=== PATIENT | male | born 1965 | race African-American/Black ===

== ENCOUNTER 2018-08-16 09:04 | Emergency (ER) | payer BC, MEDICAID ==
--- NOTE | 2018-08-16 09:25 | Emergency Department Record ---
History of Present Illness - General Chief Complaint: Dizziness Stated Complaint: LIGHTHEADED,BLEEDING Time Seen by Provider: 08/16/18 09:10 Source: Patient Mode of Arrival: Ambulatory Limitations: No limitations - History of Present Illness Initial Comments: pt has had vomiting w blood streaking and diarrhea w blood in it. he is dizzy and has pain in his abdomen. he also has cramps in various parts of his body but he states that has been occuring for years MD Complaint: Dizziness Onset/Timin -: Days(s) Description: Lightheadedness, Nausea History of Same: Yes History of Trauma: Yes Improves With: Nothing Worsens With: Nothing Associated Symptoms: Weakness - Haigler Coma Scale Eye Response: (4) Open spontaneously Motor Response: (6) Obeys commands Verbal Response: (5) Oriented Haigler Total: 15 - Symptoms of Stroke Symptoms of stroke: Dizziness - Related Data Home Medications Medication Instructions Recorded Confirmed Last Taken Polyvinyl Alcohol [Artificial 15 ml OP DAILY 08/16/18 08/16/18 Unknown Tears] Timolol/Dorzolamide/Latanop/Pf 5 ml OP DAILY 08/16/18 08/16/18 Unknown [Paul 0.5%-Dorz 2%-Latan 0.005%] Allergies Allergy/AdvReac Type Severity Reaction Status Date / Time Penicillins Allergy ANAPHYLAXIS Verified 08/16/18 09:09 Travel Screening - Travel/Exposure Within Last 30 Days Have you traveled within the last 30 days?: No Review of Systems Reviewed: No additional complaints except as noted below Constitutional: Reports: As per HPI. Denies: Chills, Fever, Malaise, Night sweats, Weakness, Weight change Eyes: Reports: As per HPI. Denies: Eye discharge, Eye pain, Photophobia, Vision change ENT: Reports: As per HPI. Denies: Congestion, Dental pain, Ear pain, Epistaxis, Hearing loss, Throat pain Respiratory: Reports: As per HPI. Denies: Cough, Dyspnea, Hemoptysis, Stridor, Wheezes Cardiovascular: Reports: As per HPI. Denies: Arrhythmia, Chest pain, Dyspnea on exertion, Edema, Murmurs, Orthopnea, Palpitations, Paroxysmal nocturnal dyspnea, Rheumatic Fever, Syncope Endocrine: Reports: As per HPI. Denies: Fatigue, Heat or cold intolerance, Polydipsia, Polyuria Gastrointestinal: Reports: As per HPI, Abdominal pain, Diarrhea, Nausea, Vomiting. Denies: Constipation, Hematemesis, Hematochezia, Melena Genitourinary: Reports: As per HPI. Denies: Dysuria, Frequency, Hematuria, Incontinence, Retention, Testicular pain, Testicular mass, Urgency Musculoskeletal: Reports: As per HPI. Denies: Arthralgia, Back pain, Gout, Joint swelling, Myalgia, Neck pain Skin: Reports: As per HPI. Denies: Bruising, Change in color, Change in hair/nails, Lesions, Pruritus, Rash Neurological: Reports: As per HPI. Denies: Abnormal gait, Confusion, Headache, Numbness, Paresthesias, Seizure, Tingling, Tremors, Vertigo, Weakness Psychiatric: Reports: As per HPI. Denies: Anxiety, Auditory hallucinations, Depression, Homicidal thoughts, Suicidal thoughts, Visual hallucinations Hematological/Lymphatic: Reports: As per HPI. Denies: Anemia, Blood Clots, Easy bleeding, Easy bruising, Swollen glands Past Medical History - SOCIAL HISTORY Smoking Status: Never smoker Alcohol Use: None Drug Use: None - RESPIRATORY Hx Respiratory Disorders: No - CARDIOVASCULAR Hx Cardio Disorders: No - NEURO Hx Neuro Disorders: No - GI Hx GI Disorders: Yes Hx Ulcer: Yes (peptic) - Hx Genitourinary Disorders: No - ENDOCRINE Hx Endocrine Disorders: No - MUSCULOSKELETAL Hx Musculoskeletal Disorders: No - PSYCH Hx Psych Problems: No - HEMATOLOGY/ONCOLOGY Hx Hematology/Oncology Disorders: No Family Medical History Any Significant Family History?: No Course Vital Signs 08/16/18 09:05 Temperature 98.0 F Pulse Rate 78 Respiratory 20 Rate Blood Pressure 118/73 Pulse Ox 99 - Reevaluation(s) Reevaluation #1: 08/16/18 10:29 pt refuses to have a rectal. pt wants to be transfered to [facility] Medical Decision Making - Lab Data Result diagrams: 08/16/18 09:20 08/16/18 09:20 Disposition Disposition: Transfer Clinical Impression: Acute anemia Disposition: Acute Care Hospital Transfer Transfer To: [facility] Reason For Transfer: pts request and needs specialists Accepting Physician: dr rehman Time Discussed w/Accepting Physician: 10:43 Forms: Patient Portal Access Quality - Quality Measures Quality Measures: N/A - Blood Pressure Screening Does Patient Have Any of the Following: No Blood Pressure Classification: Normal BP Reading Systolic Measurement: 118 Diastolic Measurement: 73 Screening for High Blood Pressure: < Normal BP, F/U Not Required > [G2038]
[2018-08-16] MEDS ORDERED: ONDANSETRON HCL IV 4 MG/2 ML VIAL IV ONE (09:33)
[2018-08-16] MEDS ORDERED: 0.9 % SODIUM CHLORIDE 1,000 ML BAG IV ONE (09:33)
[2018-08-16 09:46] LABS: ABSOLUTE NEUTROPHIL COUNT 3.12; HEMATOCRIT 18.2 % (42.0-52.0); MEAN CELL VOLUME 71.4 fl (81-97); MEAN CORPUSCULAR HEMOGLOBIN 19.2 pg (27-33); MEAN CORPUSCULAR HGB CONC 26.9 g/dl (32-36); PLATELET COUNT 435 K/uL (130-400); RED BLOOD COUNT 2.55 M/uL (4.40-5.70); RED CELL DISTRIBUTION WIDTH 17.9 % (11.5-14.5); WHITE BLOOD COUNT W/O DIFF 4.5 K/uL (4.2-12.2)
[2018-08-16 09:56] LABS: BLOOD UREA NITROGEN 8 mg/dL (6-20); CREATININE 0.7 mg/dL (0.7-1.2); EST GLOMERULAR FILTRATION RATE > 60 mL/min
[2018-08-16 09:57] LABS: LIPASE 22 U/L (13-60)
[2018-08-16 09:59] LABS: GLUCOSE,RANDOM 121 mg/dL (74-109)
[2018-08-16 10:00] LABS: ANISOCYTOSIS 2+; HYPOCHROMIA 3+; PLATELET ESTIMATE NORMAL (NORMAL); POIKILOCYTOSIS 2+
[2018-08-16 10:24] LABS: TOTAL PROTEIN 6.9 g/dL (6.6-8.7)
[2018-08-16 10:29] LABS: ALKALINE PHOSPHATASE 63 U/L (40-129); ALT/SGPT 12 U/L (<41); AST/SGOT 23 U/L (10.0-50.0)
[2018-08-16 10:30] LABS: BILIRUBIN,DIRECT < 0.2 mg/dL (0-0.3)
[2018-08-16 10:37] LABS: ABO GROUP O; ANTIBODY SCREEN NEGATIVE (NEGATIVE); RH TYPE POSITIVE
[2018-08-16] MEDS ORDERED: HYDROMORPHONE HCL 2 MG/ML VIAL IVP ONE (11:53)
--- NOTE | 2018-08-16 21:00 | CT SCAN REPORT ---
EXAM: CT SCAN ABDOMEN/PELVIS WO CONTRAST HISTORY: LEFT ABDOMINAL PAIN. BLOODY DIARRHEA. HEMATEMESIS. 30 LB WEIGHT LOSS IN ONE YEAR. TECHNIQUE: Helical CT examination of the abdomen and pelvis is performed without oral or intravenous contrast administration. Lack of oral and IV contrast utilization limits evaluation of the bowel and solid viscera, respectively. A paucity of intraabdominal and retroperitoneal fat also limits evaluation. COMPARISON: None. FINDINGS: Minor linear scarring vs. atelectasis in each lung base. There are multiple small calcified nodules scattered within the lung bases consistent with healed granulomatous disease. No pleural or pericardial effusion. The heart is not enlarged. To the extent visualized, no focal abnormality is demonstrated within the liver, spleen, pancreas, adrenal glands, nor kidneys. The gallbladder is unremarkable. No definite biliary ductal dilatation. No definite intraabdominal nor retroperitoneal lymphadenopathy, though evaluation is limited by a lack of intraabdominal and retroperitoneal fat. Minor atherosclerotic calcification is demonstrated within the distal abdominal aorta and right common iliac artery. No aneurysmal dilatation. No definite pelvic mass, lymphadenopathy, or free pelvic fluid. No intrinsic urinary bladder abnormality. No gross bowel dilatation nor bowel wall thickening. The appendix is not visualized with confidence, though no inflammatory changes are noted in its expected location. Mild degenerative endplate changes are scattered throughout the visualized spine. There is bilateral spondylolysis of L5 associated with grade 1 anterolisthesis of L5 on S1. There are several small hypodensities scattered within the iliac bones with the largest measuring up to 11 mm in maximum diameter. These may just relate to areas of focal marrow fat or hemangiomata. Lytic neoplastic lesions, though much less likely, cannot be entirely excluded. Comparison to prior examinations, if any exist, is recommended. If none exist, these could be further evaluated with either MRI examination or nuclear medicine total-body bone scan. IMPRESSION: 1. THE EXAMINATION IS MODERATELY LIMITED BY LACK OF ORAL AND IV CONTRAST UTILIZATION AND BY A PAUCITY OF INTRAABDOMINAL AND RETROPERITONEAL FAT. 2. NO CT EVIDENCE OF AN ACUTE INTRAABDOMINAL NOR INTRAPELVIC PROCESS. NO SUSPICIOUS MASS NOR ADENOPATHY. 3. MULTIPLE SMALL CALCIFIED GRANULOMATA WITHIN THE LUNG BASES. 4. BILATERAL SPONDYLOLYSIS OF L5 ASSOCIATED WITH GRADE 1 ANTEROLISTHESIS OF L5 ON S1. SEVERAL SMALL AREAS OF HYPODENSITY WITHIN THE ILIAC BONES, DISCUSSED ABOVE. JOB NUMBER: [id number] [facility]
== END 2018-08-16 12:17 | disposition short-term general hospital (02) ==
LOC: ER 09:04
DX: D64.9 Anemia, unspecified (principal); K92.0 Hematemesis; K92.1 Melena; R42 Dizziness and giddiness; R11.0 Nausea; R06.02 Shortness of breath; M89.9 Disorder of bone, unspecified; R63.4 Abnormal weight loss
CPT/HCPCS: 74176; 80048; 80076; 83690; 84484; 85027; 86850; 86900; 86901; 93005; 93010; 96374; 96375; 99285; J2405; J7030

== ENCOUNTER 2018-09-30 13:20 | Emergency (ER) | payer BC, MEDICAID ==
--- NOTE | 2018-09-30 13:37 | Emergency Department Record ---
History of Present Illness - General Chief Complaint: Abdominal Pain Stated Complaint: ABD PAIN Time Seen by Provider: 09/30/18 13:25 Source: Patient Mode of Arrival: Ambulatory Limitations: No limitations - History of Present Illness Initial Comments: 53 yo male presents with abdominal pain. The pain has been ongoing for about 2 months. The pain is cramp like in nature. He has associated nausea. No blood in any vomit or diarrhea. He is having normal stools. In August he was seen in the [facility] ED with a Hgb of 4.5 with blood in vomit and stools. He was transferred to [facility]. He reports he had scopes but no source of the bleeding was found. He has not seen blood in the stools since then. No fevers. His doctor is in [facility]. Complaint: Abdominal pain Onset/Timin -: Hour(s) Location: LLQ Radiation: None, LLQ Migration to: Q Severity: Severe Severity scale (1-10): 10 Quality: Cramping Consistency: Constant Improves With: Nothing Worsens With: Nothing Associated Symptoms: Denies other symptoms - Related Data Home Medications Medication Instructions Recorded Confirmed Last Taken Cyclobenzaprine HCl [Flexeril] 10 mg PO TID 09/30/18 09/30/18 Unknown Duloxetine HCl [Cymbalta] 60 mg PO DAILY 09/30/18 09/30/18 Unknown Previous Rx's Medication Instructions Recorded Hydrocodone/Acetaminophen [[place]en 1 tab PO Q6H PRN #10 tab 09/30/18 5mg/325mg] Hyoscyamine Sulfate [Levsin-Sl] 0.125 mg SL Q12H #15 tab.subl 09/30/18 Allergies Allergy/AdvReac Type Severity Reaction Status Date / Time Penicillins Allergy ANAPHYLAXIS Verified 08/16/18 09:09 Travel Screening - Travel/Exposure Within Last 30 Days Have you traveled within the last 30 days?: No Review of Systems Constitutional: Denies: Chills, Fever, Weakness Eyes: Denies: Eye discharge ENT: Denies: Congestion, Throat pain Respiratory: Denies: Cough Cardiovascular: Denies: Chest pain, Syncope Endocrine: Denies: Fatigue Gastrointestinal: Denies: Abdominal pain, Diarrhea, Nausea, Vomiting Genitourinary: Denies: Dysuria, Frequency, Hematuria Musculoskeletal: Denies: Arthralgia, Back pain, Myalgia Skin: Denies: Bruising, Change in color, Rash Neurological: Denies: Headache Psychiatric: Denies: Anxiety Hematological/Lymphatic: Denies: Easy bleeding, Easy bruising Past Medical History - SOCIAL HISTORY Smoking Status: Never smoker - RESPIRATORY Hx Respiratory Disorders: No - CARDIOVASCULAR Hx Cardio Disorders: No - NEURO Hx Neuro Disorders: No - GI Hx GI Disorders: Yes Hx Ulcer: Yes (peptic/bleeding) - Hx Genitourinary Disorders: No - ENDOCRINE Hx Endocrine Disorders: No - MUSCULOSKELETAL Hx Musculoskeletal Disorders: No - PSYCH Hx Psych Problems: No - HEMATOLOGY/ONCOLOGY Hx Hematology/Oncology Disorders: No Family Medical History Any Significant Family History?: No Physical Exam - General General Appearance: Alert, Oriented x3, Cooperative, No acute distress Limitations: No limitations - Head Head exam: Atraumatic, Normal inspection - Eye Eye exam: Normal appearance, PERRL. negative: Conjunctival injection, Scleral icterus - ENT ENT exam: Normal exam, Mucous membranes moist Ear exam: Normal external inspection Nasal Exam: Normal inspection Mouth exam: Normal external inspection - Neck Neck exam: Normal inspection - Respiratory Respiratory exam: Normal lung sounds bilaterally. negative: Respiratory distress - Cardiovascular Cardiovascular Exam: Regular rate, Normal rhythm, Normal heart sounds - GI/Abdominal GI/Abdominal exam: Soft, Tenderness (Mild focal LLQ tenderness, soft abdomen otherwise). negative: Distended, Guarding, Rebound, Rigid - Rectal Rectal exam: Deferred - exam: Deferred - Extremities Extremities exam: Normal inspection, Full ROM, Normal capillary refill. negative: Tenderness - Back Back exam: Denies: CVA tenderness (R), CVA tenderness (L) - Neurological Neurological exam: Alert, Oriented X3 - Psychiatric Psychiatric exam: Normal affect, Normal mood. negative: Agitated, Anxious - Skin Skin exam: Dry, Intact, Normal color, Warm Course Vital Signs 09/30/18 13:21 Temperature 98.3 F Pulse Rate 63 Respiratory 20 Rate Blood Pressure 131/83 Pulse Ox 96 - Reevaluation(s) Reevaluation #1: 09/30/18 14:05 The labs were reviewed The Hgb is 11.6 The CMP is unremarkable for significant abnormality 09/30/18 14:06 HF [facility] records were reviewed UGI 08/17/18 Normal. 09/30/18 16:22 The patient still has pain. I recommend CT scan at this time with contrast for further evaluation. 09/30/18 19:[address] was reviewed. No acute intra-abdominal process. Questionable lytic like lesions of the pelvic bones. The patient and his doctor were aware of these findings. He had a biopsy 2 weeks ago that he said was negative. Medical Decision Making - Lab Data Result diagrams: 09/30/18 13:30 09/30/18 13:30 Disposition Disposition: Discharge Clinical Impression: Abdominal pain Qualifiers: Abdominal location: left lower quadrant Qualified Code(s): R10.32 - Left lower quadrant pain Disposition: Home, Self-Care Condition: (1) Good Instructions: Abdominal Pain (ED) Additional Instructions: Call your doctor for close follow up of your ongoing abdominal pain Be seen if worse, and fever, vomiting, bloody or dark stools Prescriptions: Hyoscyamine Sulfate [Levsin-Sl] 0.125 mg SL Q12H #15 tab.subl Hydrocodone/Acetaminophen [Mcallen 5mg/325mg] 1 tab PO Q6H PRN #10 tab PRN Reason: Pain - General Forms: Patient Portal Access Time of Disposition: 18:25 Quality - Quality Measures Quality Measures: N/A - Blood Pressure Screening Does Patient Have Any of the Following: No Blood Pressure Classification: Pre-Hypertensive BP Reading Systolic Measurement: 131 Diastolic Measurement: 83 Screening for High Blood Pressure: < Pre-Hypertensive BP, F/U Documented > [G8950] Pre-Hypertensive Follow-up Interventions: Referral to alternative/primary care provider.
[2018-09-30] MEDS ORDERED: ONDANSETRON HCL IV 4 MG/2 ML VIAL IVP ONE (13:38)
[2018-09-30] MEDS ORDERED: 0.9 % SODIUM CHLORIDE 1,000 ML BAG IV ONE (13:38)
[2018-09-30] MEDS ORDERED: HYOSCYAMINE SULFATE ODT 0.125 MG TAB.SUBL SL ONE (13:38)
[2018-09-30] MEDS ORDERED: ACETAMINOPHEN 1,000 MG/100 ML BTL IVPB ONE (13:38)
[2018-09-30 13:47] LABS: ABSOLUTE NEUTROPHIL COUNT 3.97; BASO % 0.2 % (0-6); EOS % 0.8 % (0-6); GRAN % 74.5 % (47-80); HEMATOCRIT 37.9 % (42.0-52.0); HEMOGLOBIN 11.6 gm/dl (14.0-18.0); LYMPH % 19.4 % (16-45); MEAN CELL VOLUME 81.3 fl (81-97); MEAN CORPUSCULAR HGB CONC 30.6 g/dl (32-36); MEAN PLATELET VOLUME 9.4 fl (7.4-10.4); MONO % 5.1 % (0-9); PLATELET COUNT 362 K/uL (130-400); RED BLOOD COUNT 4.66 M/uL (4.40-5.70); RED CELL DISTRIBUTION WIDTH 25.6 % (11.5-14.5); WHITE BLOOD COUNT W/O DIFF 5.3 K/uL (4.2-12.2)
[2018-09-30 13:48] LABS: MEAN CORPUSCULAR HEMOGLOBIN 24.8 pg (27-33)
[2018-09-30 13:59] LABS: BLOOD UREA NITROGEN 10 mg/dL (6-20); CREATININE 0.9 mg/dL (0.7-1.2); EST GLOMERULAR FILTRATION RATE > 60 mL/min; LIPASE 29 U/L (13-60); TOTAL PROTEIN 7.9 g/dL (6.6-8.7)
[2018-09-30 14:00] LABS: INR 1.1; PARTIAL THROMBOPLASTIN TIME 27.3 SECONDS (24.5-39.1); PROTHROMBIN TIME (PATIENT) 11.4 SECONDS (9.5-12.1)
[2018-09-30 14:01] LABS: GLUCOSE,RANDOM 117 mg/dL (74-109)
[2018-09-30 14:04] LABS: ALB/GLOB RATIO 1.3 (1.1-1.8); ALBUMIN 4.5 g/dL (4.0-5.0); ALKALINE PHOSPHATASE 71 U/L (40-129); ALT/SGPT 20 U/L (<41); AST/SGOT 47 U/L (10.0-50.0)
[2018-09-30] MEDS ORDERED: MORPHINE SULFATE 10MG/1ML **1ML VIAL IVP ONE (16:21)
--- NOTE | 2018-10-01 21:44 | CT SCAN REPORT ---
EXAM: CT SCAN ABDOMEN/PELVIS W CONTRAST HISTORY: ABDOMINAL PAIN, PARTICULARLY LEFT LOWER QUADRANT, WORSE TODAY. TECHNIQUE: Axial CT scan of the abdomen and pelvis obtained following both oral or IV contrast administration. Please see the medical record for contrast specifics. FINDINGS: There are a few small calcified granulomas in the lung bases bilaterally. No definite calcified gallstones are seen within the gallbladder. No definite hepatic or splenic mass identified. No definite adrenal, pancreatic, or left renal mass identified. There is a small low-attenuation mass in the right kidney, only measuring about 7 mm in size. This is too small to accurately measure by CT, although is probably just a small cyst. This is not well seen on the prior study without IV contrast. Oral contrast given has not as yet reached the terminal ileum or cecum and the appendix is not well-demonstrated in this patient of relatively thin body habitus as well, but I believe a small amount of the appendix is visualized as a normal-caliber air-containing structure with no definite appendicitis identified. There is probably a very small amount of nonspecific free fluid in the pelvis. No free air identified. Bilateral spondylolysis of L5 again evident as previously noted, with slightly spondylolisthesis of L5 on S1, also similar to before. The bones diffusely appear relatively dense, although with some tiny radiolucent foci scattered, particularly in the iliac bones as previously reported. Correlation with prior workup suggested including any known primary malignancy or possibly metabolic abnormality including renal osteodystrophy. IMPRESSION: 1. BIBASILAR CALCIFIED GRANULOMAS. 2. BONES AGAIN APPEAR DIFFUSELY SOMEWHAT DENSE BUT WITH SOME SMALL RELATIVELY LYTIC FOCI IN THE ILIAC BONES IN PARTICULAR BEFORE. RECOMMEND CORRELATION WITH PRIOR WORKUP. 3. SMALL AMOUNT OF FREE FLUID IN THE PELVIS. NO FREE AIR EVIDENT. 4. NO DEFINITE APPENDICITIS SEEN. JOB NUMBER: [id number] [facility]
== END 2018-09-30 19:34 | disposition home or self-care (01) ==
LOC: ER 13:20
DX: R10.32 Left lower quadrant pain (principal)
CPT/HCPCS: 99284 ×2; 96374; 96375; 83690; 85025; 85730; 85610; 80053; 74177; Q9967; J1980; J2405; J2270; J7030

== ENCOUNTER 2019-04-17 08:27 | Emergency (ER) | payer BC, MEDICAID, OTHER ==
--- NOTE | 2019-04-17 08:40 | Emergency Department Record ---
History of Present Illness - General Chief Complaint: Laceration(s) Stated Complaint: FINGER INJURY Time Seen by Provider: 04/17/19 08:33 Source: Patient Mode of Arrival: Ambulatory Limitations: No limitations - History of Present Illness Initial Commments: pT IS LEFT HAND DOMINATE PRESENTS FROM WORK WHERE HE INJURED HIS LEFT INDEX FINGER WHEN a grinding wheel broke. Pt with laceration to dorsal proximal index finger left. No other injury. No prior treatments. Last tetanus one year ago. - Related Data Hx Tetanus Toxoid Vaccination: Yes Year of Tetanus Vaccination: 2019 Patient Tetanus UTD (within 5 yrs): Yes Home Medications Medication Instructions Recorded Confirmed Last Taken Brimonidine Tartrate [Alphagan P] 5 ml OP DAILY 04/17/19 04/17/19 Unknown Dorzolamide HCl/Timolol Maleat 10 ml OP DAILY 04/17/19 04/17/19 Unknown [Cosopt Eye Drops] Previous Rx's Medication Instructions Recorded Hydrocodone/Acetaminophen [[place] 1 tab PO Q6H PRN #10 tab 09/30/18 5mg/325mg] Hyoscyamine Sulfate [Levsin-Sl] 0.125 mg SL Q12H #15 tab.subl 09/30/18 Allergies Allergy/AdvReac Type Severity Reaction Status Date / Time Penicillins Allergy ANAPHYLAXIS Verified 04/17/19 08:32 Review of Systems Constitutional: Denies: Chills, Fever Eyes: Denies: Photophobia ENT: Denies: Congestion Respiratory: Denies: Cough Cardiovascular: Denies: Chest pain Endocrine: Denies: Fatigue Gastrointestinal: Denies: Abdominal pain Musculoskeletal: Reports: As per HPI. Denies: Back pain Skin: Reports: As per HPI. Denies: Bruising Neurological: Denies: Headache, Seizure Psychiatric: Denies: Anxiety Past Medical History - SOCIAL HISTORY Smoking Status: Never smoker Alcohol Use: None Drug Use: None - RESPIRATORY Hx Respiratory Disorders: No - CARDIOVASCULAR Hx Cardio Disorders: No - NEURO Hx Neuro Disorders: No - GI Hx GI Disorders: Yes Hx Ulcer: Yes (peptic/bleeding) - Hx Genitourinary Disorders: No - ENDOCRINE Hx Endocrine Disorders: No - MUSCULOSKELETAL Hx Musculoskeletal Disorders: No - PSYCH Hx Psych Problems: No - HEMATOLOGY/ONCOLOGY Hx Hematology/Oncology Disorders: No Family Medical History Any Significant Family History?: No Physical Exam - General General Appearance: Alert, Oriented x3, Cooperative, No acute distress - Head Head exam: Atraumatic - Eye Eye exam: PERRL - ENT ENT exam: Mucous membranes moist - Respiratory Respiratory exam: negative: Respiratory distress - Extremities Extremities exam: Full ROM, Normal capillary refill Image of Hand: 1 - 2cm laceration dorsal proximal index finger left hand. Details in procedure note. - Neurological Neurological exam: Alert, Normal gait, Oriented X3. negative: Motor sensory deficit - Psychiatric Psychiatric exam: Normal affect, Normal mood - Skin Skin exam: Normal color Type of lesion: Laceration (as discribed above and in procedure note. ) Course - Reevaluation(s) Reevaluation #1: 04/17/19 08:37 seen and exam. Td UTD per pt - one year ago. Xray ordered. Will repair following review of Xray. Reevaluation #2: 04/17/19 09:16 PROCEDURE NOTE: digit block left IF with great result. Cleaned with copious irrigation and explored to base without FB or N/V/T structures. Full ROM flex and ext against resistance. 2 cm irregular lac . Closed with 3 horizontal mattress sutures and one simple int. 4-0 nylon sutures. Bleeding controlled and dressing applied. Tolerated well. Procedures - Nerve Block Local Anesthetic Used: Lidocaine 2% Amount of anesthesia used: 4 Side: Left Nerve Blocks: Digital, Other (index finger left) Procedure Successful: Yes Complications: None Patient Tolerated Procedure: Good Medical Decision Making - Management Options MDM Management: No Additional Work-up Planned Disposition Disposition: Discharge Clinical Impression: Laceration of left index finger Qualifiers: Encounter type: initial encounter Damage to nail status: without damage Foreign body presence: without foreign body Qualified Code(s): S61.211A - Laceration without foreign body of left index finger without damage to nail, initial encounter Condition: (1) Good Instructions: Laceration (ED) Additional Instructions: Sutures out in 7-10 days. Local wound care. Keep clean and dry for 7 days. Recheck in 48 hours with employee health, family doctor, or in the ED. Return to the ED at anytime as needed. Forms: Patient Portal Access Time of Disposition: 09:13 Quality - Quality Measures Quality Measures: N/A - Blood Pressure Screening Does Patient Have Any of the Following: No Blood Pressure Classification: Normal BP Reading Systolic Measurement: 118 Diastolic Measurement: 68 Screening for High Blood Pressure: < Normal BP, F/U Not Required > [G8783]
--- NOTE | 2019-04-17 09:00 | RADIOLOGY REPORT ---
EXAMINATION: Left Thumb, Minimum Two Views EXAM DATE: 04/17/2019 8:51 AM TECHNIQUE: PA, lateral, and oblique views INDICATION: trauma COMPARISON: None ENCOUNTER: Initial FINDINGS: 3 views of the left second finger show no evidence of fracture or dislocation. Alignment is anatomic. There is no visualized radiopaque foreign body. Soft tissue swelling is noted proximally. IMPRESSION: No fracture or dislocation. Dictated by: David Ragsdale MD on 04/17/2019 8:58 AM. .
== END 2019-04-17 09:33 | disposition home or self-care (01) ==
LOC: ER 08:27
DX: S61.211A Laceration without foreign body of left index finger without damage to nail, initial encounter (principal); W31.89XA Contact with other specified machinery, initial encounter; Y92.63 Factory as the place of occurrence of the external cause; Y99.0 Civilian activity done for income or pay
CPT/HCPCS: 12041; 73140; 99284

== ENCOUNTER 2019-04-28 18:14 | Emergency (ER) | payer OTHER ==
--- NOTE | 2019-04-28 18:23 | Emergency Department Record ---
History of Present Illness - General Stated Complaint: SUTURE REMOVED Time Seen by Provider: 04/28/19 18:19 Source: Patient Mode of arrival: Ambulatory Limitations: No limitations - History of Present Illness Initial Comments: 54 yo male presents with a recheck and suture removal. He denies any concerns or problems with the healing. No problems with ROM or movement. No signs of infection. MD Complaint: Suture/staple removal, Wound re-check -: Week(s) Initial Visit For: Laceration Returns Today for: Staple/stitch removal, Wound recheck Symptoms Since Prior Visit: No new symptoms Associated Symptoms: None Treatments Prior to Arrival: Other - Related Data Previous Rx's Medication Instructions Recorded Hydrocodone/Acetaminophen [[place] 1 tab PO Q6H PRN #10 tab 09/30/18 5mg/325mg] Hyoscyamine Sulfate [Levsin-Sl] 0.125 mg SL Q12H #15 tab.subl 09/30/18 Allergies Allergy/AdvReac Type Severity Reaction Status Date / Time Penicillins Allergy ANAPHYLAXIS Verified 04/17/19 08:32 Review of Systems Constitutional: Denies: Chills, Fever Eyes: Denies: Eye discharge ENT: Denies: Congestion Respiratory: Denies: Cough Endocrine: Denies: Fatigue Gastrointestinal: Denies: Abdominal pain, Diarrhea, Nausea, Vomiting Genitourinary: Denies: Dysuria, Frequency, Hematuria Musculoskeletal: Denies: Arthralgia, Myalgia Skin: Denies: Bruising, Rash Neurological: Denies: Numbness, Tingling, Tremors Psychiatric: Denies: Anxiety Hematological/Lymphatic: Denies: Easy bleeding, Easy bruising Past Medical History - SOCIAL HISTORY Smoking Status: Never smoker Drug Use: None - RESPIRATORY Hx Respiratory Disorders: No - CARDIOVASCULAR Hx Cardio Disorders: No - NEURO Hx Neuro Disorders: No - GI Hx GI Disorders: Yes Hx Ulcer: Yes (peptic/bleeding) - Hx Genitourinary Disorders: No - ENDOCRINE Hx Endocrine Disorders: No - MUSCULOSKELETAL Hx Musculoskeletal Disorders: No - PSYCH Hx Psych Problems: No - HEMATOLOGY/ONCOLOGY Hx Hematology/Oncology Disorders: No Physical Exam - General General Appearance: Alert, Oriented x3, Cooperative, No acute distress Limitations: No limitations - Head Head exam: Atraumatic - Eye Eye exam: Normal appearance - ENT ENT exam: Normal exam Ear exam: Normal external inspection Nasal Exam: Normal inspection Mouth exam: Normal external inspection - Neck Neck exam: Normal inspection - Cardiovascular Peripheral Pulses: 2+: Radial (R) - Extremities Extremities exam: Full ROM, Other (Healing laceration of the left index finger, no signs of infection.). negative: Joint swelling, Tenderness - Neurological Neurological exam: Alert, Oriented X3 - Psychiatric Psychiatric exam: Normal affect, Normal mood. negative: Agitated, Anxious - Skin Skin exam: Dry, Intact, Normal color, Warm Course - Reevaluation(s) Reevaluation #1: 04/28/19 18:30 The finger is healing without complication The sutures were removed without difficulty We discussed home care and reasons to return Disposition Disposition: Discharge Clinical Impression: Visit for suture removal Disposition: Home, Self-Care Condition: (1) Good Instructions: Stitches Removal (ED) Additional Instructions: Return if you have any concerns with the continued healing of your finger laceration Time of Disposition: 18:30 Quality - Quality Measures Quality Measures: N/A - Blood Pressure Screening Does Patient Have Any of the Following: No Blood Pressure Classification: Normal BP Reading Systolic Measurement: 111 Diastolic Measurement: 69 Screening for High Blood Pressure: < Normal BP, F/U Not Required > [G8783] Pre-Hypertensive Follow-up Interventions: Referral to alternative/primary care provider.
== END 2019-04-28 18:37 | disposition home or self-care (01) ==
LOC: ER 18:14
DX: Z48.02 Encounter for removal of sutures (principal)